=== PATIENT | female | born 1975 | race Caucasian/White ===

== ENCOUNTER 2025-08-25 09:47 | Outpatient (AMB) | payer OTHER, SELFPAY ==
--- OUTSIDE RECORDS SUMMARY | 2020-05-04 09:05 | XMS_ITS | Encounter Summary ---
Author Organization [facility] Address [address] [address] Phone Care Team Providers Care Media Production Support Manager Name Role Phone Gladis Rojas MD Unavailable [phone] Karen Clark MD Unavailable [phone] Juwan Ledezma MD Unavailable [phone] Karen Clark MD Primary Care Provider Encounter Details Date Type Department Care Team (Late st Contact Info) Description 05/04/2020 9:05 AM EDT Hospital Encounter [facility] [address] [place] [id number] Sarah Dunn CNP [address] [place] [id number] [email or web address] Social History Tobacco Use Types Packs/Day Years Used Date Smoking Tobacco: Never Smokeless Tobacco: Never Alcohol Use Standard Drinks/Week Comments Yes 1 (1 standard drink = 0.6 oz pur e alcohol) 1 per month Education Answer Date Recorded Are you interested in more education? Not on dylon e 03/16/2023 Are you concerned about learning? Not on file 03/16/2023 No 03/16/2023 No 03/16/2023 Digital Access Answer Date Recorded No 04/11/2023 No 04/11/2023 Reliable internet access at home? Not on file 04/11/2023 Device with a working camera? Not on file Comments No Sex and Gender Information Value Date Recorded Sex Assigned at Not on file Legal Sex Female 9:27 PM EDT Gender Identity Not on file Sexual Orientation Not on file documented as of this encounter Functional Status * Calculated C-SSRS Risk Score (Lifetime/Recent) Answer Date of Assessment Author No Risk Indicated 08/27/2022 10:37 PM EDT Dawit Brand, CEE * [place] Suicide Severity Rating Scale (Screener/Recent Self-Report) Question Answer Date of Assessment Author 1. Wish to be (Past 1 Month) No 022 10:37 PM EDT Dawit Brand RN 2. Non-Specific Active Suici yann Thoughts (Past 1 Month) No 08/27/2022 10:37 PM EDT Tony Brand ea, RN 6. Suicidal Behavior (Lifetime) No 10:37 PM EDT Dawit Brand RN documented as of this encounter Plan of Treatment Not on file documented as of this encounter Procedures Procedure Name Priority Date/Time Associated Diagnosis Comments XR THORACIC SPINE 3 VIEW Urgent/patient waiting 05/04/2020 9:19 AM EDT Acute midline thoracic back pain Traumatic ecchymosis of lower back, initial encounter documented in this encounter Results * XR THORACIC SPINE 3 VIEW (05/04/2020 9:19 AM EDT) Anatomical Region Laterality Modality T-spine Radiographic Lauren ging 05/04/2020 9:21 AM EDT Impressions 05/04/2020 9:23 AM EDT No acute bony abnormality detected. POS - [id number] Narrative 05/04/2020 9:23 AM EDT COMPARISON: 03/09/2019 FINDINGS: AP, lateral, and swimmer's views were obtained. No vertebral body fracture or subluxation apparent although the T1 body is not well-visualized on the lateral views. A minimal chronic left convex upper thoracic scoliotic curvature is present. Visualized paraspinal soft tissues are within normal limits. Procedure Note Duong Zamudio MD - 05/04/2020 COMPARISON: 03/09/2019 FINDINGS: AP, lateral, and swimmer's views were obtained. No vertebral body fractureor subluxation apparent although the T1 body is not well-visualized on thelateral views. A minimal chronic left convex upper thoracic scolioticcurvature is present. Visualized paraspinal soft tissues are within normallimits. IMPRESSION: No acute bony abnormality detected. POS - [id number] Sarah Wicho Shaun CONCRETE PIPE PLANT SUPERVISOR IMG XR SPINE Final Resul t documented in this encounter Visit Diagnoses Not on filedocumented in this encounter Additional Health Concerns Infection Onset Date Last Indicated Resolved Time CoV-Risk 05/05/2024 05/05/2024 05/16/2024 1:22 AM EDT documented as of this encounter Care Teams Media Production Support Manager Relationship Specialty Start Date End Date Karen Clark MD [address] [place] [address] [email or web address] PCP - General Internal Medicine 10/24/17 Gladis Rojas MD [address] [place] [address] 3 [place] [address] Historical LMR Provider 09/03/17 2 Karen Clark MD [address] [place] [address] [email or web address] Historical LMR Provider 09/03/17 Juwan Ledezma MD [address] [place] [address] [address] [place] [address] Historical LMR Provider 09/03/17 documented as of this encounter Additional Source Comments The information contained in this document represents components of the legal health record. It is not the complete legal health record.[facility]
--- OUTSIDE RECORDS SUMMARY | 2022-09-24 11:38 | XMS_ITS | Encounter Summary ---
Author Organization [facility] Address [address] [address] Phone Care Team Providers Care Stripper Cutter Machine Name Role Phone Karen Clark MD Unavailable Juwan Ledezma MD Unavailable [phone] Karen Clark MD Primary Care Provider [phone] Encounter Details Date Type Department Care Team (Late st Contact Info) Description 09/24/2022 10:38 AM EST Hospital Encounter [facility] [address] [place] [phone] Sarah Dunn CNP [address] [place] [address] [email or web address] Social History Tobacco Use Types Packs/Day Years [...] on file documented as of this encounter Plan of Treatment Not on file documented as of this encounter Procedures Procedure Name Priority Date/Time Associated Diagnosis Comments XR KNEE 4 OR MORE VIEWS (RIGHT) Urgent/patient waiting 09/24/2022 10:49 AM EST Chronic pain of right knee documented in this encounter Results * XR KNEE 4 OR MORE VIEWS (RIGHT) (09/24/2022 10:49 AM EST) Anatomical Region Laterality Modality Knee Right Computed Radiogr aphy 09/24/2022 10:5 8 AM EST Impressions 09/24/2022 11:13 AM EST 1.No fracture or dislocation. 2.Moderate suprapatellar joint effusion. ATTESTATION: Rob Amin as teaching physician, have reviewed the images for this case and if necessary edited the report originally created by Vern Siu. Narrative 09/24/2022 11:13 AM EST XR KNEE 4 OR MORE VIEWS (RIGHT) COMPARISON: None. FINDINGS: Right Knee: No fracture. Normal alignment. Small patellar and tibial spine osteophytes. Moderate suprapatellar joint effusion. Procedure Note Rob Ortega MD, PhD - 09/24/2022 XR KNEE 4 OR MORE VIEWS (RIGHT) COMPARISON: None. FINDINGS: Right Knee: No fracture. Normal alignment. Small patellar and tibial spineosteophytes. Moderate suprapatellar joint effusion. IMPRESSION: 1.No fracture or dislocation. 2.Moderate suprapatellar joint effusion. ATTESTATION: Rob Amin as teaching physician, have reviewed theimages for this case and if necessary edited the report originally createdby Vern Siu. Sarah Dunn INSTRUCTIONAL PARAPROFESSIONAL IMG XR LOWER EXTREMITY Mia l Result documented in this encounter Visit Diagnoses Not on filedocumented in this encounter Additional Health Concerns Infection Onset Date Last Indicated Resolved Time CoV-Risk 05/05/2024 05/05/2024 05/16/2024 1:22 AM EDT documented as of this encounter Care Teams Stripper Cutter Machine Relationship Specialty Start Date End Date Karen Clark MD [address] [place] [address] [email or web address] PCP - General Internal Medicine 10/24/17 Karen Clark MD [address] [place] [email or web address] Historical LMR Provider 09/03/17 Juwan Ledezma MD [address] [place] [address] [email or web address] Historical LMR Provider 09/03/17 documented as of this encounter Additional Source Comments The information contained in this document represents components of the legal health record. It is not the complete legal health record.[facility]
--- NOTE | 2025-08-25 09:55 | MHC.PC.OV ---
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 Note: New patient visit Allergies No Known Allergies Allergy (Verified 08/25/25 09:59) Tobacco use date assessed: 08/25/25 Dental Screening Dental Screen Date: 08/25/25 Did you have a dental visit in the last 12 months?: Yes Did you have a dental problem in the last 6 months where you did not have access to dental care?: No Was dental information given to patient?: Patient has dentist HPI HPI Comments History of Present Illness Details 50 year old female with a past medical history of knee pain, CTS, uterine polyps, presenting to [facility] and for physical exam MSK-CTS surgery 2008, 2012. b/l ACL repair. Six months ago had cortisone shot in the left knee. Uterine [id number] She has noticed memory issues over the past 4 hours, more so over the past 6-12 months. She is under a lot of stress. Has difficulty with word recall. Sometimes forgets what she is doing. No family history of dementia. She has left breast pain for the past year. Tells me she has had diagnostic left mammo before that did not visualize anything. Randomly occur pain can be sharp and catch her. She cannot feel any discrete masses. Mammo 04/2025 Colononoscopy 08/2022-10 years. Tdap up todate Warehouse Lead: Juwan Núñez UTD: cee [employer]RI[employer] CONSTITUTIONAL: Denies weight loss, fever and chills. HEENT: Denies changes in vision and hearing. RESPIRATORY: Denies SOB and cough. CV: Denies palpitations and CP GI: Denies abdominal pain, nausea, vomiting and diarrhea. : Denies dysuria and urinary frequency. MSK: Denies new myalgia and joint pain. SKIN: Denies rash and pruritus. NEUROLOGICAL: Denies headache PSYCHIATRIC: Denies recent changes in mood. PHYSICAL EXAM: GENERAL: Alert and oriented x 3. NAD EYES: EOMI. Anicteric. HENT: Moist mucous membranes. No scleral icterus. No cervical lymphadenopathy. LUNGS: Clear to auscultation bilaterally. CARDIOVASCULAR: Regular rate and rhythm. No murmur. No JVD. ABDOMEN: Soft, non-tender +bs EXTREMITIES: No edema. Non-tender. SKIN: No rashes or lesions. Warm. NEUROLOGIC: No focal neurological deficits. CN II-XII grossly intact PSYCHIATRIC: Cooperative. Appropriate mood and affect [facility] Surgical History H/O tubal ligation History of carpal tunnel surgery Status post hysteroscopic polypectomy Family History Mother Thyroid disorder Father Cardiovascular disease Paternal Grandmother Alcoholism Maternal Grandfather Alcoholism Other FH: mental illness Substance abuse Social History (Reviewed 08/25/25 @ 11: by Pam Berger MD) Housing: House Alcohol intake: current Patient Tobacco Use Status: Never used Tobacco e-Cigarette/Vaping Use: Never Used Second Hand Smoke Exposure: No Substance Use Type: Former Substance User and Marijuana service: No Current occupational status: employed 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 1. Little interest or pleasure in doing things: not at all 2. Feeling down, depressed, or hopeless: not at all 3. Trouble falling or staying asleep, or sleeping too much: not at all 4. Feeling tired or having little energy: not at all 5. Poor appetite or overeating: not at all 6. Feeling bad about yourself - or that you are a failure or have let yourself or your family down: not at all 7. Trouble concentrating on things, such as reading the newspaper or watching television: not at all 8. Moving or speaking so slowly that other people could have noticed. Or the opposite - being so fidgety or restless that you have been moving around a lot more than usual: not at all 9. Thoughts that you would be better off or of hurting yourself in some way: not at all Total score: 0 Depression Screening Interpretation: Negative Depression Screening Done: Yes 74765 - PHQ-9 Billing: Yes Source: Developed by Drs. Krish Holloway, Bharti Jhaveri, Frederick Norton and colleagues, with an educational george from [employer]. Thrive Questionnaire Date Thrive assessed: 08/19/25 I am a: Patient What is your living situation today?: I have a steady place to live Within the past 12 months, did the food you bought not last and you didn't have the money to get more?: Never true Within the past 12 months, did you worry whether your food would run out before you got money to buy more?: Never true Do you have trouble paying for medicines?: No Do you have trouble getting transportation to medical appointments?: No Do you have trouble paying your heating and electricity bill?: No Do you have trouble taking care of your child, family member or friend?: No Do you have trouble with day-to-day activities such as bathing, preparing meals, shopping, managing finances, etc.?: No Are you currently unemployed and looking for a job?: No Are you interested in more education?: No Please select the resources that you would like help with: None Currently or been in a relationship where the following occur: No concerns reported THRIVE Score: 0 AUDIT C Alcohol Use Questionnaire (AUDIT-C) 1. How often do you have a drink containing alcohol?: 2-4 times a month 2. How many drinks containing alcohol do you have on a typical day when you are drinking?: 1 or 2 3. How often do you have six or more drinks on one occasion?: Never Total Score: 2 MIKE-7 AMB Questionnaire MIKE-7 Date MIKE - 7 assessed: 08/25/25 Feeling nervous, anxious, or on edge: 0 = Not at all Not being able to stop or control worryin = Not at all Worrying too much about different things: 0 = Not at all Trouble relaxin = Not at all Being so restless that it is hard to sit still: 0 = Not at all Becoming easily annoyed or irritable: 0 = Not at all Feeling afraid as if something awful might happen: 0 = Not at all Total MIKE-7 score (0-4 normal; 5-9 mild; 10-14 moderate; 15-21 severe): 0 Source: Developed by Bharti Rueda Kurt Kroenke and colleagues, with an educational george from [employer]. MIKE-7 Assessment Billing MIKE-7 Assessment Tool: MIKE-7 Assessment 61946 Physical exam (Primary Care) Vital Signs: Last Vital Signs Temp 97.9 F 08/25/25 10:00 Pulse 64 08/25/25 10:00 Resp 14 08/25/25 10:00 BP 108/68 08/25/25 10:00 Pulse Ox 99 08/25/25 10:00 Oxygen Delivery Method Room Air 08/25/25 10:00 BMI result Body Mass Index 35.4 Tobacco/Smoking Status: Tobacco use Status Tobacco use date assessed 08/25/25 08/25/25 10:04 Patient Tobacco Use Status Never used Tobacco 08/25/25 10:13 e-Cigarette/Vaping Use Never Used 08/25/25 10:13 PHQ-9: PHQ-9 Score PHQ-9: Total score 0 08/25/25 10:26 Depression Screening Interpretation: Negative Thrive Assessment: Date of Thrive Assessment Date Thrive assessed 08/19/25 08/25/25 09:57 Currently or been in a relationship where the following occur: No concerns reported Office Procedures Flu Questionnaire Does the patient have a severe egg allergy?: No Does the patient have severe life threatening allergies?: No Does the patient have a fever or illness today?: No Has the patient ever had Guillain-[place] Syndrome?: No Has the patient ever had any past reaction to a flu shot?: No Immunizations Fluarix [id number] (PF) 45 mcg (15 mcg x 3)/0.5 mL IM syringe Performing Provider: Pam Berger MD Performing Location: [facility] Administered by: Akua Mendez CMA on 08/25/25 10:26 Dose Route Admin Location Dispensed Lot Number Expiration Date NDC Plow Mechanic 0.5 mL IM Left Deltoid 0.5 mL [id number] 05/18/26 70497-654-50 GLAXAimetisINE VIS Given Date VIS Provided VIS Publication Date 08/25/25 Single Vaccine 24 Eligibility Eligibility Date Funding Source Not [facility] Eligible 08/25/25 Private Coding Level of Care Code New Pt Prev Care 40-64y(30522) Diagnoses Physical exam Z00.00 Polyarthralgia M25.50 Memory loss R41.3 Additional Codes MIKE-7 Assessment Billing - MIKE-7 Assessment Tool: MIKE-7 Assessment 23184 ([id number]) PHQ-9 - 97371 - PHQ-9 Billing: Yes ([id number]) Assessment & Plan Assessment & Plan (1) Physical exam: Code(s): Z00.00 - Encounter for general adult medical examination without abnormal findings (2) Polyarthralgia: Code(s): M25.50 - Pain in unspecified joint Category: Medical (3) Memory loss: Code(s): R41.3 - Other amnesia Category: Medical Plan 50 year old to establish care/physical exam Past medical, surgical, social reviewed Preventive measures for age discussed Labs, flu shot Memory loss-labs ordered. Declines referral at present Breast pain-declines breast surgery referral Orders: Orders Complete Blood Count Auto Diff Today M25.50 - Pain in unspecified joint, R41.3 - Other amnesia, Z13.0 - Encounter for screening for diseases of the blood and blood-forming organs and certain disorders involving the immune mechanism, Z13.220 - Encounter for screening for lipoid disorders, Z13.228 - Encounter for screening for other metabolic disorders Lipid Panel Today M25.50 - Pain in unspecified joint, R41.3 - Other amnesia, Z13.0 - Encounter for screening for diseases of the blood and blood-forming organs and certain disorders involving the immune mechanism, Z13.220 - Encounter for screening for lipoid disorders, Z13.228 - Encounter for screening for other metabolic disorders TSH reflex Free T4 Today M25.50 - Pain in unspecified joint, R41.3 - Other amnesia, Z13.0 - Encounter for screening for diseases of the blood and blood-forming organs and certain disorders involving the immune mechanism, Z13.220 - Encounter for screening for lipoid disorders, Z13.228 - Encounter for screening for other metabolic disorders Vitamin D 25-OH (D2 and D3) Today M25.50 - Pain in unspecified joint, R41.3 - Other amnesia, Z13.0 - Encounter for screening for diseases of the blood and blood-forming organs and certain disorders involving the immune mechanism, Z13.220 - Encounter for screening for lipoid disorders, Z13.228 - Encounter for screening for other metabolic disorders Comprehensive Met. Panel Today M25.50 - Pain in unspecified joint, R41.3 - Other amnesia, Z13.0 - Encounter for screening for diseases of the blood and blood-forming organs and certain disorders involving the immune mechanism, Z13.220 - Encounter for screening for lipoid disorders, Z13.228 - Encounter for screening for other metabolic disorders Vitamin B12 and Folate Today M25.50 - Pain in unspecified joint, R41.3 - Other amnesia, Z13.0 - Encounter for screening for diseases of the blood and blood-forming organs and certain disorders involving the immune mechanism, Z13.220 - Encounter for screening for lipoid disorders, Z13.228 - Encounter for screening for other metabolic disorders Tick-borne Disease Molecular Today M25.50 - Pain in unspecified joint, R41.3 - Other amnesia Lyme IgG/IgM w/reflex to WB Today M25.50 - Pain in unspecified joint, R41.3 - Other amnesia Erythrocyte Sedimentation Rate Today M25.50 - Pain in unspecified joint Influenza [id number] Immunization Today Z23 - Encounter for immunization
[2025-08-25 10:00] VITALS: BP 108/68; PULSE 64; RESP 14; TEMP 36.6; O2SAT 99; BMI 35.4
--- OUTSIDE RECORDS SUMMARY | 2025-08-25 11:14 | XMS_ITS | Encounter Summary ---
Author Organization [facility] Address [address] [address] Phone Care Team Providers Care Ham Boner Name Role Phone Karen Clark MD Unavailable Juwan Ledezma MD Unavailable [phone] Karen Clark MD Primary Care Provider [phone] Encounter Details Date Type Department Care Team (Late st Contact Info) Description 04/10/2023 Transcribe Orders Virtual Department [address] [place] [address] Karen Clark MD [address] [place] [address] [phone] [email or web address] Social History Tobacco Use Types Packs/Day Years Used Date Smoking Tobacco: Never Smokeless Tobacco: Never Alcohol Use Standard Drinks/Week Comments Yes 0 (1 standard drink = 0.6 oz pur [...] on file documented as of this encounter Visit Diagnoses Not on filedocumented in this encounter Additional Health Concerns Infection Onset Date Last Indicated Resolved Time CoV-Risk 05/05/2024 05/05/2024 05/16/2024 1:22 AM EDT documented as of this encounter Care Teams Ham Boner Relationship Specialty Start Date End Date Karen Clark MD [address] [place] [address] [email or web address] PCP - General Internal Medicine 10/24/17 Karen Clark MD [address] [place] [address] Historical LMR Provider 09/03/17 Juwan Ledezma MD [address] [place] [address], [address] [address] Historical LMR Provider 09/03/17 documented as of this encounter Additional Source Comments The information contained in this document represents components of the legal health record. It is not the complete legal health record.[facility]
--- OUTSIDE RECORDS SUMMARY | 2025-08-25 11:15 | XMS_ITS | Encounter Summary ---
Author Organization [facility] Address [address] [address] Phone Care Team Providers Care Cafeteria Attendant Name Role Phone Karne Clark MD Unavailable [phone] Juwan Ledezma MD Unavailable [phone] Karen Clark MD Primary Care Provider [phone] Encounter Details Date Type Department Care Team (Late st Contact Info) Description 09/13/2022 Procedure Pass [facility]oscopy Admitting Dept Virtual Department [address] [place] [address] Social History Tobacco Use Types Packs/Day Years Used Date Smoking Tobacco: Never Smokeless Tobacco: Never Alcohol Use Standard Drinks/Week Comments Yes 0 (1 standard drink = 0.6 oz pur e alcohol) 1 per month Comments No Sex and Gender Information Value [...] documented as of this encounter Care Teams Cafeteria Attendant Relationship Specialty Start Date End Date Karen Clark MD [address] [place] [address] [email or web address] PCP - General Internal Medicine 10/24/17 Karen Clark MD [address] [place] [address] [email or web address] Historical LMR Provider 09/03/17 Juwan Ledezma MD [address] [place] [address], [address] [address] [email or web address] Historical LMR Provider 09/03/17 documented as of this encounter Additional Source Comments The information contained in this document represents components of the legal health record. It is not the complete legal health record.[facility]
--- OUTSIDE RECORDS SUMMARY | 2025-08-25 11:15 | XMS_ITS | Encounter Summary ---
Author Organization [facility] Address [address] [address] Phone Care Team Providers Care Health Unit Supervisor Name Role Phone Karen Clark MD Unavailable [phone] Juwan Ledezma MD Unavailable [phone] Karen Clark MD Primary Care Provider [phone] Encounter Details Date Type Department Care Team (Late st Contact Info) Description 03/12/2024 Procedure Pass [facility] [address] [place] [address] Social History Tobacco Use Types Packs/Day Years [...] documented as of this encounter Care Teams Health Unit Supervisor Relationship Specialty Start Date End Date Karen Clark MD [address] [place] [address] [email or web address] PCP - General Internal Medicine 10/24/17 Karen Clark MD [address] [place] [address] Historical LMR Provider 09/03/17 Juwan Ledezma MD [address] [place] [address], [address] [address] [email or web address] Historical LMR Provider 09/03/17 documented as of this encounter Additional Source Comments The information contained in this document represents components of the legal health record. It is not the complete legal health record.[facility]
--- OUTSIDE RECORDS SUMMARY | 2025-08-25 11:15 | XMS_ITS | Clinical Summary ---
Author Organization [facility] Address [address] [address] Phone Care Team Providers Care Dock Grader Name Role Phone Karen Clark MD Unavailable Juwan Ledezma MD Unavailable [phone] Karen Clark MD Primary Care Provider [phone] Allergies Active Allergy Reactions Criticality Noted Date Comments Oxycodone-Acetaminophen Nausea and/or Vomiting 05/16/2024 Medications No known medications Active Problems No known active problems Immunizations Immunization Administration Dates Next Due COVID-19 (Pre-09/10) Pfizer Vaccine, mRNA, PF ,12/30/2020 Influenza Quadrivalent MDCK Preservative Free IM 11/01/2021,09/05/2018 Influenza Quadrivalent Preservative Free IM 03/2020,08/26/2019 Family History Medical History Relation Comments CV disease Father 2 Hypertension Father 2 Hypertension Mother 2 CV disease Paternal Grandfather 2 Relation Status Comments Father 1 Alive Father 2 Mother 1 Alive Mother 2 Paternal Grandfather 1 Paternal Grandfather 2 Social History Tobacco Use Types Packs/Day Years Used Date Smoking Tobacco: Never Smokeless Tobacco: Never Tobacco Cessation:Counseling Given: Not Answered Alcohol Use Standard Drinks/Week Comments Yes 1 [...] on file Sexual Orientation Not on file Last Filed Vital Signs Vital Sign Reading Time Taken Comments Blood Pressure 116/74 02/27/2025 4:08 PM EDT Pulse 65 12/29/2022 10:30 AM EST Temperature 36.6 C (97.8 F) 12/29/2022 10:30 AM EST Respiratory Rate 16 12/29/2022 10:30 AM EST Oxygen Saturation 98% 12/29/2022 10:30 AM EST Inhaled Oxygen Concentration - - Weight 87.7 kg (193 lb 6.4 oz) 05/16/2024 3:46 P M EDT Height 157.5 cm (5' 2 ) 05/16/2024 3:46 PM EDT Body Mass Index 35.37 05/16/2024 3:46 PM EDT Plan of Treatment Health Maintenance Due Date Last Done Comments Adult Td,Tdap Booster 1975 DEPRESSION SCREENING 1989 HEPATITIS C SCREENING 1995 HIV ONE-TIME SCREENING (18-65 YEARS) 1995 COLOGUARD 2022 FIT TEST 2022 FOBT 2022 SIGMOIDOSCOPY 2022 VIRTUAL COLONOSCOPY 2022 INFLUENZA VACCINE (#1) 2025 , 10/23/2020, 08/26/2019, Additional history exists COVID-19 VACCINE ( season) 2025 07/20/2021, 01/22/2021, 12/30/2020 SCREENING FOR DIABETES 03/12/2027 03/12/2024 MAMMOGRAM 04/29/2027 04/29/2025, 07/2 02/2024, 06/06/2023, Additional history exists LIPID PANEL 03/12/2029 03/12/2024, 10/19, 12/21/2021, Additional history exists PAP SMEAR 05/16/2029 05/16/2024, 10/0 04/2021, 07/17/2018, Additional history exists COLONOSCOPY 09/13/2032 09/13/2022 COLORECTAL CANCER SCREENING 09/13/2032 SMOKING STATUS SCREENING (Once After 26 Yrs) Completed 02/27/2025 HEPATITIS A VACCINES Aged Out No long er eligible based on patient's age to complete this topic HIB VACCINES Aged Out No longer eligi ble based on patient's age to complete this topic MENINGOCOCCAL VACCINES (ACWY) Aged Out No longer eligible based on patient's age to complete this topic MENINGOCOCCAL VACCINES (B) Aged Out N o longer eligible based on patient's age to complete this topic PNEUMOCOCCAL VACCINES (0-49 years) Aged Out No longer eligible based on patient's age to complete this topic Medical Devices Not on file Procedures Procedure Name Priority Date/Time Associated Diagnosis Comments BI MAMMOGRAM DIAGNOSTIC WITH TOMOSYNTHESIS WITH CAD (BILATERAL) Routine 04/29/2025 2:46 PM EDT Breast pain, left PAP TEST Routine 05/16/2024 12:00 AM EDT LIPID PANEL Routine 03/12/2024 10:02 AM EDT Vitamin D deficiency Routine general medical examination at a [facility] ENDOSCOPY, COLON 09/13/2022 11:5 4 AM EDT from Last 3 Months or Most Recently Relevant to Health Maintenance Results * BI MAMMOGRAM DIAGNOSTIC WITH TOMOSYNTHESIS WITH CAD (BILATERAL) (04/29/2025 2:46 PM EDT) Anatomical Region Laterality Modality Breast Left, Breast Right, Breast Bilateral Bila teral Mammography 04/29/2025 2:54 PM EDT Impressions 04/29/2025 3:32 PM EDT No imaging findings suspicious for malignancy in either breast. Clinical follow- up recommended as well as bilateral screening mammography in one year. BI-RADS 1 NEGATIVE Results and recommendations were communicated to the patient at time of examination. Narrative 04/29/2025 3:32 PM EDT BI MAMMOGRAM DIAGNOSTIC WITH TOMOSYNTHESIS WITH CAD (BILATERAL), BI US BREAST LIMITED (LEFT) Additional patient information: Anterior-central left breast pain. This is particularly noticeable at 11:00. COMPARISON: Comparison is made with relevant prior imaging. Breast composition: The breasts are heterogeneously dense, which may obscure small masses. FINDINGS: Right Mammogram: No abnormal masses, suspicious calcifications, or other significant findings are identified mammographically in the right breast. There is no change since previous examination. Left Mammogram: No abnormal masses, suspicious calcifications, or other significant findings are identified mammographically in the left breast. There is no change since previous examination. Left Ultrasound: Targeted ultrasound was performed in the area of clinical concern as indicated by the patient. No sonographic abnormality is seen. us Juwan Ledezma MD IMG MG EXAMS Final Result * Pap Test (05/16/2024 12:00 AM EDT) 05/16/2024 05/19/2024 9:2 3 AM EDT Narrative SEE NARRATIVE - 05/26/2024 2:31 [place] [address] Wax Room Supervisor: Gwendolyn Guerra MD I&C TECH Cytology Report FINAL DIAGNOSIS A. PAP SMEAR (THIN PREP) CE: SPECIMEN ADEQUACY: Satisfactory for evaluation; transformation zone present. INTERPRETATION: NEGATIVE FOR INTRAEPITHELIAL LESION OR MALIGNANCY. Endometrial cells are present in a woman 45 years of age or older. Endometrial cells after age 45, particularly out of phase or after menopause, may be associated with benign endometrium, hormonal alterations, and, less commonly, endometrial/uterine abnormalities. Clinical correlation is recommended. This specimen was analyzed by the automated ThinPrep Imaging System (Depop.) and the selected glass were reviewed by a russet repairer. Electronically Signed Out By: JULIANE Chávez MD([facility]) By his/her signature above, the pathologist listed as making the Final Diagnosis certifies that he/she has personally reviewed this case and confirmed or corrected the diagnosis. The Pap test is a screening test primarily for squamous cancers and precursors and has associated false-negative and false-positive results. New technologies such as liquid-based preparations may decrease but will not eliminate all false-negative results. Regular sampling and follow-up of unexplained clinical signs and symptoms are recommended to minimize false negative results. PROCEDURES/ADDENDA HPV Testing (Requested) Ordered Date: 05/19/2024 A. PAP SMEAR (THIN PREP) CE: Human Papilloma Virus Test NEGATIVE for high-risk Human Papilloma Virus types 16, 18, 45 and the Other high risk probe set (Includes 31, 33, 35, 39, 51, 52, 56, 58, 59, 66, 68) Note: Testing performed by [employer] HR-HPV analysis. Clinical correlation is advised. This HPV test was performed at [facility], [address] [place] [address]. This test has been FDA approved for both SurePath and ThinPrep cervical cytology specimens. The accuracy and precision of this test for all other specimen sources has been verified in the Cytopathology Laboratory of the [facility] and has not been cleared or approved by the U.S. Food and Drug Administration. Clinical correlation is advised. CLINICAL HISTORY Date of Last Menstrual Period: 05-10-24 Other Clinical Conditions: Screening Pap SPECIMEN SOURCE A: PAP SMEAR (THIN PREP) CE Patient Name: YENI CHILDRESS : 1975 (Age: 49) Sex: F Institution: [facility] Location: [facility] Date of Collection: 05/16/2024 Date of Reported: 05/26/2024 14:31 Results to: Juwan Ledezma MD, BS us Juwan Ledezma MD CYTOLOGY ORDERABLES Final Res ult SEE NARRATIVE * (ABNORMAL) Lipid panel (03/12/2024 10:02 AM EDT) HDL 68 mg/dL [facility] Comment: Interpretation <40 mg/dL: Low HDL cholesterol (major risk factor for CHD) Greater than or equal to 60 mg/dL: High HDL cholesterol ( negative risk factor for CHD) HDL - cholesterol is affected by a number of factors, e.g. smoking, excerise, hormones, sex and age. CHOLESTEROL 195 0 - 240 mg/dL [facility] TRIGLYCERIDES 86 30 - 160 mg/dL [facility] LDL 110 50 - 129 mg/dL [facility] Comment: LDL levels in terms of risk for coronary heart disease: <100 mg/dL: Optimal 100-129 mg/dL: Near or above optimal 130-159 mg/dL: Borderline high 160-189 mg/dL: High >190 mg/dL: Very High CARDIAC RISK RATIO 2.9(L) 3.3 - 4.4 C [facility] Blood 03/12/2024 10:0 2 AM EDT 03/12/2024 10:08 AM EDT us Karen Clark MD LAB BLOOD ORDERABLES Final Result Performing Organization Address City/State/[facility] Co de Phone Number [facility] [address] [place] [address] * ENDOSCOPY, COLON (09/13/2022 11:54 AM EDT) Narrative Transcriptions Salo Pantoja MD - 09/13/2022 11:54 AM EDT Patient Name: Yeni Childress Attending MD:: SALO PANTOJA MD Procedure Date: 09/13/2022 11:54AM Date of : 1975 Age: 47 Admit Type: Outpatient Gender: Female Room: [place] [address] Referring MD: KAREN CLARK MD Exam Type: Colonoscopy Indications: Screening for colorectal malignant neoplasm, Thisis the patient's first colonoscopy Medications: Monitored Anesthesia Care Procedure: Informed consent was obtained from the patientafter discussion of the indications, limitations, alternatives, benefits, and risks of the procedure. Risks specifically discussed include but are not limited to medication reactions, missed lesions, bleeding, perforation, or the need for emergent surgery. Throughout the procedure, the patient's blood pressure, pulse, end-tidal CO2, and oxygensaturations were monitored continuously. The Olympus adult variable colonoscope CF-[id number] #4 was introduced through the anus and advanced to the terminal ileum, with identification of theappendiceal orifice and IC valve. The colonoscopy was performed without difficulty. The patient tolerated the procedure well. The quality of the bowelpreparation was excellent. The terminal ileum, ileocecal valve, appendiceal orifice, and rectum werephotographed. Complications: No immediate complications. Estimated blood loss:None. Findings: The terminal ileum appeared normal. Examination of the right colon was repeated in retroflexion and again in NBI. Retroflexion wasalso performed in the rectum. The entire examined colon appeared normal. Impression: - The examined portion of the ileum was normal. - The entire examined colon is normal. - No specimens collected. Recommendation: - Patient has a contact number available for emergencies. The signs and symptoms of potential delayed complications were discussed with thepatient. Return to normal activities tomorrow. Written discharge instructions were provided to thepatient. - Repeat colonoscopy in 10 years for screening purposes. Salo Pantoja SALO PANTOJA MD 09/13/2022 12:26:03 PM This report has been signed electronically. Number of Addenda: 0 Note Initiated On: 09/13/2022 11:54 AM Procedure Code(s): --- Professional --- 81608, Colonoscopy, flexible; diagnostic, including collection of specimen(s) by brushing or washing, when performed (separateprocedure) --- Technical --- 19626, Colonoscopy, flexible; diagnostic, including collection of specimen(s) by brushing or washing, when performed (separateprocedure) CPT copyright 2020 [employer]. All rights reserved. The codes documented in this report are preliminary and upon prosecuting attorney reviewmay be revised to meet current compliance requirements. Procedure Date: 09/13/2022 11:54:[address] [place] [address] Karen Clark MD GI PROCEDURE ORDERABLES Fin al Result from Last 3 Months or Most Recently Relevant to Health Maintenance Insurance [address] [place], [place] [address]O [facility] Member Subscriber Plan / Payer (Ef fective 2017-Present) Name:Yeni Childress Relation to Subscriber:Spouse Name:SABIHAJASON Date of :1975 (Home) Address: [address] [place] [address] Payer ID:Not on file Type:[facility] Address: [place] [id number] Advance Directives For more information, please contact: [phone] (9AM - 5PM [facility], Sunday-Sunday) Documents on File Type Date Recorded 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 Operator Expl anation Healthcare Proxy 09/05/2019 11:09 AM * Full Code (Presumed) (Latest Code Status on File) Date Activated Date Inactivated Comments 09/04/2019 11:42 AM 09/04/2019 4:21 PM Care Teams Dock Grader Relationship Specialty Start Date End Date Karen Clark MD [address] [place] [address] [email or web address] PCP - General Internal Medicine 10/24/17 Karen Clark MD [address] [place] [address] [email or web address] Historical LMR Provider 09/03/17 Juwan Ledezma MD [address] [place] [address] [email or web address] Historical LMR Provider 09/03/17 Additional Source Comments The information contained in this document represents components of the legal health record. It is not the complete legal health record.[facility]
--- OUTSIDE RECORDS SUMMARY | 2025-08-25 11:15 | XMS_ITS | Encounter Summary ---
Author Organization [facility] Address [address] [address] Phone Care Team Providers Care Electronics Recycler Name Role Phone Karen Clark MD Unavailable Juwan Ledezma MD Unavailable [phone] Karen Clark MD Primary Care Provider [phone] Encounter Details Date Type Department Care Team (Late st Contact Info) Description 05/04/2023 Transcribe Orders Virtual Department [address] [place] [address] Karen Clark MD [address] [place] [email or web address] Abnormal mammogram of left breast (Primary Dx) Social History Tobacco Use Types Packs/Day Years [...] documented as of this encounter Visit Diagnoses Diagnosis Abnormal mammogram of left breast- Primary documented in this encounter Additional Health Concerns Infection Onset Date Last Indicated Resolved Time CoV-Risk 05/05/2024 05/05/2024 05/16/2024 1:22 AM EDT documented as of this encounter Care Teams Electronics Recycler Relationship Specialty Start Date End Date Karen Clark MD [address] [place] [address] [email or web address] PCP - General Internal Medicine 10/24/17 Karen Clark MD [address] [place] [email or web address] Historical LMR Provider 09/03/17 Juwan Ledezma MD [address] [place] [address] Historical LMR Provider 09/03/17 documented as of this encounter Additional Source Comments The information contained in this document represents components of the legal health record. It is not the complete legal health record.[facility]
--- OUTSIDE RECORDS SUMMARY | 2025-08-25 11:15 | XMS_ITS | Encounter Summary ---
Author Organization [facility] Address [address] [address] Phone Care Team Providers Care Cheese Supervisor Name Role Phone Karen Clrak MD Unavailable [phone] Juwan Ledezma MD Unavailable [phone] Karen Clark MD Primary Care Provider [phone] Encounter Details Date Type Department Care Team (Late st Contact Info) Description 04/10/2023 Procedure [facility], [facility] [address] [place] [address] Social History Tobacco Use Types Packs/Day Years [...] documented as of this encounter Care Teams Cheese Supervisor Relationship Specialty Start Date End Date Karen Clark MD [address] [place] [address] [email or web address] PCP - General Internal Medicine 10/24/17 Karen Clark MD [address] [place] [address] Historical LMR Provider 09/03/17 Juwan Ledezma MD [address] [place] [address], [address] [address] [email or web address] Historical LMR Provider 09/03/17 documented as of this encounter Additional Source Comments The information contained in this document represents components of the legal health record. It is not the complete legal health record.[facility]
--- OUTSIDE RECORDS SUMMARY | 2025-08-25 11:15 | XMS_ITS | Encounter Summary ---
Author Organization [facility] Address [address] [facility] [address] [place] [address] Phone Care Team Providers Care Aircraft Electrician Name Role Phone Karen Clark MD Unavailable [phone] Juwan Ledezma MD Unavailable [phone] Karen Clark MD Primary Care Provider [phone] Encounter Details Date Type Department Care Team (Late st Contact Info) Description 03/04/2025 Ancillary Orders [facility], [facility] [address] [place], [place] [id number] Juwan Ledezma MD [address] [facility], [address] [place] [address] [email or web address] Breast pain, left (Primary Dx) Social History Tobacco Use Types [...] on file documented as of this encounter Results * BI US BREAST LIMITED (LEFT) (04/29/2025 3:23 PM EDT) Anatomical Region Laterality Modality Breast Left, Breast Bilateral Left Ul trasound 04/29/2025 2:54 PM EDT Impressions 04/29/2025 3:32 [...] is seen. us Juwan Ledezma MD IMG US BREAST Final Result documented in this encounter Visit Diagnoses Diagnosis Breast pain, left- Primary Breast pain, left documented in this encounter Care Teams Aircraft Electrician Relationship Specialty Start Date End Date Karen Clark MD [address] [place] [address] [email or web address] PCP - General Internal Medicine 10/24/17 Karen Clark MD [address] [place] [email or web address] Historical LMR Provider 09/03/17 Juwan Ledezma MD [address] [place] [address] [email or web address] Historical LMR Provider 09/03/17 documented as of this encounter Additional Source Comments The information contained in this document represents components of the legal health record. It is not the complete legal health record.[facility]
--- OUTSIDE RECORDS SUMMARY | 2025-08-25 11:15 | XMS_ITS | Encounter Summary ---
Author Organization [facility] Address [address] [place] [address] Phone Care Team Providers Care Neurosurgery Spine Physician Name Role Phone Gladis Rojas MD Unavailable [phone] Karen Clark MD Unavailable [phone] Juwan Ledezma MD Unavailable [phone] Karen Clark MD Primary Care Provider Encounter Details Date Type Department Care Team (Late st Contact Info) Description 05/23/2018 Ancillary Orders Virtual Department [address] [place], [place] [id number] Karen Clark MD [address] [place] [email or web address] Breast screening Social History Tobacco Use Types Packs/Day Years Used Date Smoking Tobacco: Never Smokeless Tobacco: Never Alcohol Use Standard Drinks/Week Comments Yes 0 (1 standard drink = 0.6 oz pur e alcohol) Comments Unknown Sex and Gender Information Value Date Recorded Sex Assigned at Not on file Legal Sex Female 9:27 PM EDT Gender Identity Not on file Sexual Orientation Not on file documented as of this encounter Plan of Treatment Not on file documented as of this encounter Results * BI MAMMOGRAM SCREENING WITH TOMOSYNTHESIS WITH CAD (BILATERAL) (07/16/2018 1:54 PM EDT) Anatomical Region Laterality Modality Breast Left, Breast Right, Breast Bilateral Bila teral Mammography 07/16/2018 2:27 PM EDT Impressions 07/16/2018 2:29 PM EDT Stable appearance relative to prior imaging. No findings suggestive of malignancy are seen. BI-RADS CATEGORY: 1 - Negative. DENSITY: The breast tissue is heterogeneously dense, an appearance which lowers the sensitivity of mammography. POS - [id number] Narrative 07/16/2018 2:29 PM EDT Full-field digital mammography is obtained with computer-aided detection. Comparison with prior imaging from 02/20/2017 is made. There is heterogeneous fibroglandular density evident in the breasts. In addition to 2-D C view imaging, tomosynthesis images are obtained in two projections of each breast. No dominant soft tissue mass of concern, suspicious cluster of calcifications, significant interval skin changes, or architectural distortion is identified. Procedure Note Christopher Montes MD - 07/16/2018 Full-field digital mammography is obtained with computer-aided detection.Comparison with prior imaging from 02/20/2017 is made. There is heterogeneous fibroglandular density evident in the breasts. Inaddition to 2-D C view imaging, tomosynthesis images are obtained in twoprojections of each breast. No dominant soft tissue mass of concern, suspicious cluster ofcalcifications, significant interval skin changes, or architecturaldistortion is identified. IMPRESSION: Stable appearance relative to prior imaging. No findings suggestive ofmalignancy are seen. BI-RADS CATEGORY: 1 - Negative. DENSITY: The breast tissue is heterogeneously dense, an appearance whichlowers the sensitivity of mammography. POS - [id number] Karen Clark MD IMG MG EXAMS Final Resul t documented in this encounter Visit Diagnoses Diagnosis Breast screening Breast screening, unspecified Breast screening Breast screening, unspecified documented in this encounter Additional Health Concerns Infection Onset Date Last Indicated Resolved Time CoV-Risk 05/05/2024 05/05/2024 05/16/2024 1:22 AM EDT documented as of this encounter Care Teams Neurosurgery Spine Physician Relationship Specialty Start Date End Date Karen Clark MD [address] [place] [address] [email or web address] PCP - General Internal Medicine 10/24/17 Gladis Rojas MD [address] [place] [address] [address] [place] [address] Historical LMR Provider 09/03/17 2 Karen Clark MD [address] [place] [address] [email or web address] Historical LMR Provider 09/03/17 Juwan Ledezma MD [address] [place] [address] [address] [place] [address] [email or web address] Historical LMR Provider 09/03/17 documented as of this encounter Additional Source Comments The information contained in this document represents components of the legal health record. It is not the complete legal health record.[facility]
--- OUTSIDE RECORDS SUMMARY | 2025-08-25 11:15 | XMS_ITS | Encounter Summary ---
Author Organization [facility] Address [address] [place] [address] Phone Care Team Providers Care Lightout Examiner Name Role Phone Gladis Rojas MD Unavailable [phone] Karen Clark MD Unavailable [phone] Juwan Ledezma MD Unavailable [phone] Karen Clark MD Primary Care Provider [phone] Encounter Details Date Type Department Care Team (Late st Contact Info) Description 08/24/2021 Procedure Pass [address] [address] Social History Tobacco Use Types Packs/Day Years Used Date Smoking Tobacco: Never Smokeless Tobacco: Never Alcohol Use Standard Drinks/Week Comments Yes 0 (1 standard drink = 0.6 oz pur e alcohol) 1 per week Comments No Sex and Gender Information Value [...] documented as of this encounter Care Teams Lightout Examiner Relationship Specialty Start Date End Date Karen Clark MD [address] [place] [address] [phone] [email or web address] PCP - General Internal Medicine 10/24/17 Gladis Rojas MD [address] [place] [address] Historical LMR Provider 09/03/17 2 Karen Clark MD [address] [place] [address] [email or web address] Historical LMR Provider 09/03/17 Juwan Ledezma MD [address] [place] [address] [address] [place] [address] [email or web address] Historical LMR Provider 09/03/17 documented as of this encounter Additional Source Comments The information contained in this document represents components of the legal health record. It is not the complete legal health record.[facility]
--- OUTSIDE RECORDS SUMMARY | 2025-08-25 11:15 | XMS_ITS | Encounter Summary ---
Author Organization [facility] Address [address] [address] Phone Care Team Providers Care Business Intelligence Reporting Analyst Name Role Phone Karen Clark MD Unavailable [phone] Juwan Ledezma MD Unavailable [phone] Karen Clark MD Primary Care Provider [phone] Encounter Details Date Type Department Care Team (Late st Contact Info) Description 06/20/2022 Transcribe Orders Virtual Department [address] [place] [address] Karen Clark MD [address] [place] [email or web address] Mass of left axilla (Primary Dx) Social History Tobacco Use Types [...] documented as of this encounter Results * US Axilla - Not Breast Imaging (Left) (06/28/2022 2:58 PM EDT) Anatomical Region Laterality Modality Chest Ultrasound 06/29/2022 12:4 5 PM EDT Impressions 06/29/2022 12:47 PM EDT Normal appearing nonenlarged left axillary lymph nodes. Narrative 06/29/2022 12:47 PM EDT US AXILLA - NOT BREAST IMAGING (LEFT) HISTORY: 56-year-old female presents for evaluation of palpable lump present for 6 to 8 weeks, decreasing in size over the last few days. TECHNIQUE: Ultrasound of the left axilla. COMPARISON: None FINDINGS: Targeted ultrasound examination of the left axilla palpable area demonstrates two normal-appearing lymph nodes, one measuring 1.8 x 0.8 x 1.1 cm and one measuring 1.8 x 0.7 x 0.8 cm. Both of these demonstrate normal fatty usama, without significant internal vascularity. No other cystic or solid mass. Procedure Note Bartolo Santa MD - 06/29/2022 US AXILLA - NOT BREAST IMAGING (LEFT) HISTORY: 56-year-old female presents for evaluation of palpable lumppresent for 6 to 8 weeks, decreasing in size over the last few days. TECHNIQUE: Ultrasound of the left axilla. COMPARISON: None FINDINGS: Targeted ultrasound examination of the left axilla palpable areademonstrates two normal-appearing lymph nodes, one measuring 1.8 x 0.8 x1.1 cm and one measuring 1.8 x 0.7 x 0.8 cm. Both of these demonstratenormal fatty usama, without significant internal vascularity. No othercystic or solid mass. IMPRESSION: Normal appearing nonenlarged left axillary lymph nodes. us Karen Clark MD IMG US EXTREMITY Final Resu lt documented in this encounter Visit Diagnoses Diagnosis Mass of left axilla- Primary Mass of left axilla documented in this encounter Additional Health Concerns Infection Onset Date Last Indicated Resolved Time CoV-Risk 05/05/2024 05/05/2024 05/16/2024 1:22 AM EDT documented as of this encounter Care Teams Business Intelligence Reporting Analyst Relationship Specialty Start Date End Date Karen Clark MD [address] [place] [address] [email or web address] PCP - General Internal Medicine 10/24/17 Karen Clark MD [address] [place] [address] [email or web address] Historical LMR Provider 09/03/17 Juwan Ledezma MD [address] [place] [address] [email or web address] Historical LMR Provider 09/03/17 documented as of this encounter Additional Source Comments The information contained in this document represents components of the legal health record. It is not the complete legal health record.[facility]
--- OUTSIDE RECORDS SUMMARY | 2025-08-25 11:15 | XMS_ITS | Encounter Summary ---
Author Organization [facility] Address [address] [address] Phone Care Team Providers Care Tube Backer Name Role Phone Karen Clark MD Unavailable [phone] Juwan Ledezma MD Unavailable [phone] Karen Clark MD Primary Care Provider [phone] Encounter Details Date Type Department Care Team (Late st Contact Info) Description 03/12/2024 Transcribe Orders Virtual Department 30 [place] [address] Karen Clark MD [address] [place] [address] [email or web address] Breast screening (Primary Dx) Social History Tobacco Use Types [...] MAMMOGRAM SCREENING WITH TOMOSYNTHESIS WITH CAD (BILATERAL) (06/11/2024 10:19 AM EDT) Anatomical Region Laterality Modality Breast Left, Breast Right, Breast Bilateral Bila teral Mammography 06/11/2024 3:33 PM EDT Impressions 06/11/2024 3:35 PM EDT No mammographic evidence of malignancy in either breast. Annual screening mammography is recommended. BI-RADS 1 NEGATIVE The patient will be notified of the results and recommendations. Narrative 06/11/2024 3:35 PM EDT BI MAMMOGRAM SCREENING WITH TOMOSYNTHESIS WITH CAD (BILATERAL) Additional patient information: Screening. COMPARISON: Comparison is made with relevant prior imaging. Breast composition: There are scattered areas of fibroglandular density. FINDINGS: No abnormal masses, suspicious calcifications, or other significant findings are identified mammographically in either breast. There has been no significant interval change. Procedure Note Linda Yang MD - 06/11/2024 BI MAMMOGRAM SCREENING WITH TOMOSYNTHESIS WITH CAD (BILATERAL) Additional patient information: Screening. COMPARISON: Comparison is made with relevant prior imaging. Breast composition: There are scattered areas of fibroglandular density. FINDINGS: No abnormal masses, suspicious calcifications, or other significantfindings are identified mammographically in either breast. There has been no significant interval change. IMPRESSION: No mammographic evidence of malignancy in either breast. Annual screening mammography is recommended. BI-RADS 1 NEGATIVE The patient will be notified of the results and recommendations. Karen Clark MD IMG MG EXAMS Final Resul t documented in this encounter Visit Diagnoses Diagnosis Breast screening- Primary Breast screening, unspecified Breast screening Breast screening, unspecified documented in this encounter Additional Health Concerns Infection Onset Date Last Indicated Resolved Time CoV-Risk 05/05/2024 05/05/202405/16/2024 1:22 AM EDT documented as of this encounter Care Teams Tube Backer Relationship Specialty Start Date End Date Karen Clark MD [address] [place] [address] [email or web address] PCP - General Internal Medicine 10/24/17 Karen Clark MD [address] [place] [address] [email or web address] Historical LMR Provider 09/03/17 Juwan Ledezma MD [address] [place] [address] [email or web address] Historical LMR Provider 09/03/17 documented as of this encounter Additional Source Comments The information contained in this document represents components of the legal health record. It is not the complete legal health record.[facility]
--- OUTSIDE RECORDS SUMMARY | 2025-08-25 11:15 | XMS_ITS | Encounter Summary ---
Author Organization [facility] Address [address] [address] Phone Care Team Providers Care Malware Analyst Name Role Phone Karen Clark MD Unavailable Juwan Ledezma MD Unavailable [phone] Karen Clark MD Primary Care Provider [phone] Encounter Details Date Type Department Care Team (Late st Contact Info) Description 03/12/2024 Transcribe Orders [facility] [address] [id number] Karen Clark MD [address] [place] [address] [phone] [email or web address] Vitamin D deficiency (Primary Dx); Routine general medical examination at a health care facility Social History Tobacco Use Types Packs/Day Years [...] documented as of this encounter Results * Urinalysis (03/12/2024 10:02 AM EDT) COLOR Yellow Yellow [facility] CLARITY Clear [facility] GLUCOSE Negative Negative [facility] BILI Negative Negative [facility] KETONES Negative Negative [facility] SPECIFIC GRAVITY 1.025 1.005 - 1.030 [facility] BLOOD Negative Negative [facility] PH 6.0 5.0 - 8.0 [facility] Protein-UA Negative Negative [facility] NITRITE Negative Negative [facility] Leukocyte esterase, ur Negative Negative [facility] Urine (Urine) 03/12/2024 10: 02 AM EDT 03/12/2024 10:48 AM EDT Karen Clark MD URINE ORDERABLES Final Resu lt Performing Organization Address [facility]/ZIP Co de Phone Number [address] [address] * 25-OH vitamin D (03/12/2024 10:02 AM EDT) 25 [place] VIT D (TOTAL) 35 30 - 60 ng/mL [facility] Blood 03/12/2024 10:0 2 AM EDT 03/12/2024 10:08 AM EDT Karen Clark MD LAB BLOOD ORDERABLES Final Result Performing Organization Address [facility]/ZIP Co de Phone Number [address] [address] * CBC (03/12/2024 10:02 AM EDT) WBC 6.40 4.00 - 11.00 K/uL [facility] RBC 4.44 3.72 - 5.30 M/uL [facility] HGB 12.9 10.6 - 15.5 g/dL [facility] HCT 39.5 32.0 - 45.0 % [facility] PLT 239 140 - 430 K/uL [facility] MCV 89.0 78.0 - 97.0 fL [facility] MCH 29.1 25.0 - 33.0 pg [facility] MCHC 32.7 32.0 - 36.0 g/dL [facility] RDW 12.6 11.0 - 16.0 % [facility] MPV 10.7 8.4 - 12.8 [facility] Blood 03/12/2024 10:0 2 AM EDT 03/12/2024 10:08 AM EDT Karen Clark MD LAB BLOOD ORDERABLES Final Result Performing Organization Address City/State/[facility] Co de Phone Number [facility] [address] [place] [address] * (ABNORMAL) Lipid panel (03/12/2024 10:02 AM EDT) HDL 68 mg/dL [facility] Comment: Interpretation <40 mg/dL: Low HDL cholesterol (major risk factor for CHD) Greater than or equal to 60 mg/dL: High HDL cholesterol ( negative risk factor for CHD) HDL - cholesterol is affected by a number of factors, e.g. smoking, excerise, hormones, sex and age. CHOLESTEROL 195 0 - 240 mg/dL [facility] TRIGLYCERIDES 86 30 - 160 mg/dL [facility] LDL 110 50 - 129 mg/dL [facility] Comment: LDL levels in terms of risk for coronary heart disease: <100 mg/dL: Optimal 100-129 mg/dL: Near or above optimal 130-159 mg/dL: Borderline high 160-189 mg/dL: High >190 mg/dL: Very High CARDIAC RISK RATIO 2.9(L) 3.3 - 4.4 C [facility] Blood 03/12/2024 10:0 2 AM EDT 03/12/2024 10:08 AM EDT us Karen Clark MD LAB BLOOD ORDERABLES Final Result [address] [address] * Comprehensive metabolic panel (03/12/2024 10:02 AM EDT) SODIUM 139 133 - 146 mmol/L [facility] POTASSIUM 4.4 3.3 - 5.1 mmol/L [facility] CHLORIDE 104 96 - 108 mmol/L [facility] CO2 23 21 - 35 mmol/L [facility] BUN 12 6 - 19 mg/dL [facility] CREATININE 0.90 0.5 - 1.5 mg/dL [facility] GLUCOSE 91 70 - 99 mg/dL [facility] ALBUMIN 4.6 3.9 - 4.8 g/dL [facility] TOTAL PROTEIN 7.1 6.5 - 8.0 g/dL [facility] CALCIUM 9.2 8.4 - 10.3 mg/dL [facility] ALKALINE PHOSPHATASE 72 39 - 117 U/L [facility] TOTAL BILIRUBIN 0.5 0.0 - 1.2 mg/dL [facility] AST 19 0 - 37 U/L [facility] ALT 16 0 - 40 U/L [facility] GLOBULIN 2.5 1 - 4.8 g/dL [facility] EGFR 79 >59 mL/min/1.7 3m2 [facility] Comment:Estimated glomerular filtration rate calculated using the CKD-EPI refit equation. ANION GAP 16 10 - 20 mmol/L [facility] Blood 03/12/2024 10:0 2 AM EDT 03/12/2024 10:08 AM EDT us Karen Clark MD LAB BLOOD ORDERABLES Final Result [address] [address] documented in this encounter Visit Diagnoses Diagnosis Vitamin D deficiency- Primary Routine general medical examination at a health care facility documented in this encounter Additional Health Concerns Infection Onset Date Last Indicated Resolved Time CoV-Risk 05/05/2024 05/05/2024 05/16/2024 1:22 AM EDT documented as of this encounter Care Teams Malware Analyst Relationship Specialty Start Date End Date Karen lCark MD [address] [place] [address] [email or web address] PCP - General Internal Medicine 10/24/17 Karen Clark MD [address] [place] [address] [email or web address] Historical LMR Provider 09/03/17 Juwan Ledezma MD [address] [place] [address], [address] [address] [email or web address] Historical LMR Provider 09/03/17 documented as of this encounter Additional Source Comments The information contained in this document represents components of the legal health record. It is not the complete legal health record.[facility]
--- OUTSIDE RECORDS SUMMARY | 2025-08-25 11:15 | XMS_ITS | Encounter Summary ---
Author Organization [facility] Address [address] [place] [address] Phone Care Team Providers Care Rn Field Case Manager Name Role Phone Gladis Rojas MD Unavailable [phone] Karen Clark MD Unavailable [phone] Juwan Ledezma MD Unavailable [phone] Karen Clark MD Primary Care Provider Encounter Details Date Type Department Care Team (Late st Contact Info) Description 05/01/2019 Transcribe Orders Virtual Department [address] [place] [address] Karen Clark MD [address] [place] [address] [phone] [email or web address] Generalized subcutaneous nodules (Primary Dx) Social History Tobacco Use Types Packs/Day Years Used Date Smoking Tobacco: Never Smokeless Tobacco: Never Alcohol Use Standard Drinks/Week Comments Yes 0 (1 standard drink = 0.6 oz pur e alcohol) 3xs a week Comments No Sex and Gender Information Value Date Recorded Sex Assigned at Not on file Legal Sex Female 9:27 PM EDT Gender Identity Not on file Sexual Orientation Not on file documented as of this encounter Plan of Treatment Not on file documented as of this encounter Results * US UPPER EXTREMITY NON-VASCULAR LIMITED (RIGHT) (05/05/2019 3:34 PM EDT) Anatomical Region Laterality Modality Shoulder Right, Arm Right, E lbow Right, Forearm Right, Wrist Right, Hand Right Ultrasound 05/05/2019 4:13 PM EDT Impressions 05/05/2019 4:21 PM EDT 3 small round hypoechoic areas within a more vague, generalized area of increased echogenicity in the subcutaneous fat. I presume this indicates a hematoma/contusion, possibly with multifocal small seromas forming but the hypoechoic areas could also be developing fat necrosis or, less likely small abscesses. The lack of hyperemia weighs against cellulitis or abscess formation. I'm uncertain as to the best form of follow-up but if the palpable lumps enlarge, repeat ultrasound would be recommended to be sure the hypoechoic areas are not enlarging in a pattern suggestive of developing abscess. POS [id number] Narrative 05/05/2019 4:21 PM EDT HISTORY: Recent dog bite with crushtype injury and puncture wound. Chain of palpable lumps in the lower axilla/medial upper arm. No comparison In the area of the palpable lumps there is an ill-defined band of increased echogenicity in the subcutaneous fat. Within this hyperechoic tissue there are several spherical, circumscribed hypoechoic areas measuring 3 mm, 2 mm and 2 x 3 mm. No significant hyperemia. No large focal collections. No obvious echogenic foreign bodies. Procedure Note Melo Chavez MD - 05/05/2019 HISTORY: Recent dog bite with crushtype injury and puncture wound. Chainof palpable lumps in the lower axilla/medial upper arm. No comparison In the area of the palpable lumps there is an ill-defined band ofincreased echogenicity in the subcutaneous fat. Within this hyperechoictissue there are several spherical, circumscribed hypoechoic areasmeasuring 3 mm, 2 mm and 2 x 3 mm. No significant hyperemia. No large focal collections. No obvious echogenic foreign bodies. IMPRESSION: 3 small round hypoechoic areas within a more vague, generalized area ofincreased echogenicity in the subcutaneous fat. I presume this indicates ahematoma/contusion, possibly with multifocal small seromas forming but thehypoechoic areas could also be developing fat necrosis or, less likelysmall abscesses. The lack of hyperemia weighs against cellulitis or abscess formation. I'm uncertain as to the best form of follow-up but if the palpable lumpsenlarge, repeat ultrasound would be recommended to be sure the hypoechoicareas are not enlarging in a pattern suggestive of developing abscess. POS [id number] Karen Clark MD IMG US EXTREMITY Final Resu lt documented in this encounter Visit Diagnoses Diagnosis Generalized subcutaneous nodules- Primary Generalized subcutaneous nodules documented in this encounter Additional Health Concerns Infection Onset Date Last Indicated Resolved Time CoV-Risk 05/05/2024 05/05/2024 05/16/2024 1:22 AM EDT documented as of this encounter Care Teams Rn Field Case Manager Relationship Specialty Start Date End Date Karen Clark MD [address] [place] [address] [email or web address] PCP - General Internal Medicine 10/24/17 Gladis Rojas MD [address] [place] [address] 3 [place] [address] Historical LMR Provider 09/03/17 2 Karen Clark MD [address] [place] [address] [email or web address] Historical LMR Provider 09/03/17 Juwan Ledezma MD [address] [place] [address] [address] [place] [address] [email or web address] Historical LMR Provider 09/03/17 documented as of this encounter Additional Source Comments The information contained in this document represents components of the legal health record. It is not the complete legal health record.[facility]
--- OUTSIDE RECORDS SUMMARY | 2025-08-25 11:15 | XMS_ITS | Encounter Summary ---
Author Organization [facility] Address [address] [place] [address] Phone Care Team Providers Care Cellophane Casting Machine Repairer Name Role Phone Gladis Rojas MD Unavailable [phone] Karen Clark MD Unavailable [phone] Juwan Ledezma MD Unavailable [phone] Karen Clark MD Primary Care Provider [phone] Encounter Details Date Type Department Care Team (Late st Contact Info) Description 03/14/2019 Transcribe Orders Virtual Department [address] [place] [address] Karen Clark MD [address] [place] [address] [phone] [email or web address] Hepatic lesion (Primary Dx) Social History Tobacco Use Types [...] as of this encounter Results * US ABDOMEN LIMITED RIGHT UPPER QUADRANT (04/02/2019 8:37 AM EDT) Anatomical Region Laterality Modality Abdomen Ultrasound 04/02/2019 8:49 AM EDT Impressions 04/03/2019 4:20 PM EDT 3.3 cm hyperechoic lesion corresponds with the finding on CT. With the features on CT and ultrasound, this is suggestive of a hemangioma. Recommend 6 month follow-up ultrasound to ensure stability. Minimally echogenic hepatic parenchyma is commonly seen with fatty liver. POS [id number] Edited by: Carol Reyes on 04/02/2019 9:11 AM Narrative 04/03/2019 4:20 PM EDT COMPARISON: Chest CT 03/09/2019. FINDINGS: Liver: Minimally echogenic parenchyma. In the right hepatic lobe near the dome, there is 3.3 x 3.3 x 3.2 cm mildly heterogeneous hyperechoic mass without vascularity. This corresponds with the finding on CT. With the features on CT and ultrasound, this is suggestive of a hemangioma. 0.5 cm right hepatic lobe cyst near the gallbladder neck. Gallbladder/Biliary Tree: Gallbladder lumen appears clear without wall thickening or pericholecystic fluid. No intra or extrahepatic biliary ductal dilatation. The common bile duct measures 0.4 cm. Pancreas: No abnormality in the visualized pancreas. Right kidney: No hydronephrosis on limited imaging. Upper abdominal aorta/IVC: No abnormality in the visualized portions. Procedure Note Jluis Ryan MD - 04/03/2019 COMPARISON: Chest CT 03/09/2019. FINDINGS: Liver: Minimally echogenic parenchyma. In the right hepatic lobe near thedome, there is 3.3 x 3.3 x 3.2 cm mildly heterogeneous hyperechoic masswithout vascularity. This corresponds with the finding on CT. With thefeatures on CT and ultrasound, this is suggestive of a hemangioma. 0.5 cmright hepatic lobe cyst near the gallbladder neck. Gallbladder/Biliary Tree: Gallbladder lumen appears clear without wallthickening or pericholecystic fluid. No intra or extrahepatic biliaryductal dilatation. The common bile duct measures 0.4 cm. Pancreas: No abnormality in the visualized pancreas. Right kidney: No hydronephrosis on limited imaging. Upper abdominal aorta/IVC: No abnormality in the visualized portions. IMPRESSION: 3.3 cm hyperechoic lesion corresponds with the finding on CT. With thefeatures on CT and ultrasound, this is suggestive of a hemangioma.Recommend 6 month follow-up ultrasound to ensure stability. Minimally echogenic hepatic parenchyma is commonly seen with fattyliver. POS [id number] Edited by: Carol Reyes on 04/02/2019 9:11 AM us Karen Clark MD IMG US ABDOMEN Final Resul t documented in this encounter Visit Diagnoses Diagnosis Hepatic lesion- Primary Hepatic lesion documented in this encounter Additional Health Concerns Infection Onset Date Last Indicated Resolved Time CoV-Risk 05/05/2024 05/05/2024 05/16/2024 1:22 AM EDT documented as of this encounter Care Teams Cellophane Casting Machine Repairer Relationship Specialty Start Date End Date Karen Clark MD [address] [place] [address] PCP - General Internal Medicine 10/24/17 Gladis Rojas MD [address] [place] [address] Historical LMR Provider 09/03/17 2 Karen Clark MD [address] [place] [address] Historical LMR Provider 09/03/17 Juwan Ledezma MD [address] [place] [address], [address] [place] [address] Historical LMR Provider 09/03/17 documented as of this encounter Additional Source Comments The information contained in this document represents components of the legal health record. It is not the complete legal health record.[facility]
--- OUTSIDE RECORDS SUMMARY | 2025-08-25 11:15 | XMS_ITS | Encounter Summary ---
Author Organization [facility] Address [address] [address] Phone Care Team Providers Care Glassine Machine Tender Name Role Phone Karen Clark MD Unavailable [phone] Juwan Ledezma MD Unavailable [phone] Karen Clark MD Primary Care Provider [phone] Encounter Details Date Type Department Care Team (Late st Contact Info) Description 03/04/2025 Procedure Pass [facility], [facility] [address] [place] [address] Social History Tobacco Use Types Packs/Day Years [...] Diagnoses Not on filedocumented in this encounter Care Teams Glassine Machine Tender Relationship Specialty Start Date End Date Karen Clark MD [address] [place] [address] [email or web address] PCP - General Internal Medicine 10/24/17 Karen Clark MD [address] [place] [address] [email or web address] Historical LMR Provider 09/03/17 Juwan Ledezma MD [address] [place] [address], [facility] [address] [place] [address] [email or web address] Historical LMR Provider 09/03/17 documented as of this encounter Additional Source Comments The information contained in this document represents components of the legal health record. It is not the complete legal health record.[facility]
--- OUTSIDE RECORDS SUMMARY | 2025-08-25 11:15 | XMS_ITS | Encounter Summary ---
Author Organization [facility] Address [address] [address] Phone Care Team Providers Care Network Security Architect Name Role Phone Karen Clark MD Unavailable [phone] Juwan Ledezma MD Unavailable [phone] Karen Clark MD Primary Care Provider [phone] Encounter Details Date Type Department Care Team (Late st Contact Info) Description 02/27/2025 Procedure Pass [facility], [facility] [address] [place] [address] Social History Tobacco Use Types Packs/Day Years [...] on filedocumented in this encounter Care Teams Network Security Architect Relationship Specialty Start Date End Date Karen Clark MD [address] [place] [address] [email or web address] PCP - General Internal Medicine 10/24/17 Karen Clark MD [address] [place] [address] [email or web address] Historical LMR Provider 09/03/17 Juwan Ledezma MD [address] [place] [address], [facility] [address] [place] [address] [email or web address] Historical LMR Provider 09/03/17 documented as of this encounter Additional Source Comments The information contained in this document represents components of the legal health record. It is not the complete legal health record.[facility]
--- OUTSIDE RECORDS SUMMARY | 2025-08-25 11:16 | XMS_ITS | Encounter Summary ---
Author Organization [facility] Address [address] [place] [address] Phone Care Team Providers Care Cfo Controller Name Role Phone Gladis Rojas MD Unavailable [phone] Karen Clark MD Unavailable [phone] Juwan Ledezma MD Unavailable [phone] Karen Clark MD Primary Care Provider [phone] Encounter Details Date Type Department Care Team (Late st Contact Info) Description 09/04/2019 Procedure Pass [place] Admitting Dept - Virtual Department [address] [place] [address] Social History Tobacco Use Types Packs/Day Years [...] documented as of this encounter Care Teams Cfo Controller Relationship Specialty Start Date End Date Karen Clark MD [address] [place] [address] [phone] [email or web address] PCP - General Internal Medicine 10/24/17 Gladis Rojas MD [address] [place] [address] Historical LMR Provider 09/03/17 2 Karen Clark MD [address] [place] [address] [email or web address] Historical LMR Provider 09/03/17 Juwan Ledezma MD [address] [place] [address] [address] [place] [address] [email or web address] Historical LMR Provider 09/03/17 documented as of this encounter Additional Source Comments The information contained in this document represents components of the legal health record. It is not the complete legal health record.[facility]
--- OUTSIDE RECORDS SUMMARY | 2025-08-25 11:16 | XMS_ITS | Encounter Summary ---
Author Organization [facility] Address [address] [address] Phone Care Team Providers Care Applied Anthropologist Name Role Phone Gladis Rojas MD Unavailable [phone] Karen Clark MD Unavailable [phone] Juwan Ledezma MD Unavailable [phone] Karen Clark MD Primary Care Provider Encounter Details Date Type Department Care Team (Late st Contact Info) Description 10/24/2017 Transcribe Orders [facility] Laboratory [address] [id number] Karen Clark MD [address] [place] [address] [phone] [email or web address] Routine general medical examination at a health care facility (Primary Dx) Social History Tobacco Use Types Packs/Day Years Used Date Smoking Tobacco: Never Assessed Comments Unknown Sex and Gender Information Value Date Recorded Sex Assigned at Not on file Legal Sex Female 9:27 PM EDT Gender Identity Not on file Sexual Orientation Not on file documented as of this encounter Plan of Treatment Not on file documented as of this encounter Results * Urinalysis (10/24/2017 12:10 PM EST) COLOR Yellow Yellow [facility] CLARITY HAZY [facility] GLUCOSE Negative Negative [facility] BILI Negative Negative [facility] KETONES Negative Negative [facility] SPECIFIC GRAVITY 1.020 1.005 - 1.030 [facility] BLOOD Negative Negative [facility] PH 6.0 5.0 - 8.0 [facility] Protein-UA Negative Negative [facility] NITRITE Negative Negative [facility] Leukocyte esterase, ur Negative Negative [facility] Urine (Urine) 10/24/2017 12: 10 PM EST 10/24/2017 4:59 PM EST Karen Clark MD URINE ORDERABLES Final Resu lt [address] [address] * CBC (10/24/2017 12:10 PM EST) WBC 6.42 3.40 - 11.20 K/uL [facility] RBC 4.29 3.80 - 4.80 M/uL [facility] HGB 12.6 12.0 - 15.0 g/dL [facility] HCT 37.7 36.0 - 46.0 % [facility] PLT 253 130 - 400 K/uL [facility] MCV 87.9 79.0 - 98.0 fL [facility] MCH 29.4 27.0 - 34.8 pg [facility] MCHC 33.4 31.5 - 36.0 g/dL [facility] RDW 12.4 10.8 - 14.6 % [facility] MPV 11.1 9.4 - 12.4 fl [facility] NRBC 0.00 /100 WBCs [facility] ABSOLUTE NRBC 0.00 K/uL [facility] Blood 10/24/2017 12:1 0 PM EST 10/24/2017 12:14 PM EST Karen Clark MD LAB BLOOD ORDERABLES Final Result [address] [address] * (ABNORMAL) Lipid panel (10/24/2017 12:10 PM EST) HDL 65 mg/dL [facility] Comment: Interpretation: Risk Level Females Decreased >55mg/dL Average 50-55 mg/dL Increased <50 mg/dL CHOLESTEROL 160 0 - 240 mg/dL [facility] TRIGLYCERIDES 86 30 - 160 mg/dL [facility] LDL 78 50 - 129 mg/dL [facility] Comment: LDL levels in terms of risk for coronary heart disease: <100 mg/dL: Optimal 100-129 mg/dL: Near or above optimal 130-159 mg/dL: Borderline high 160-189 mg/dL: High >190 mg/dL: Very High CARDIAC RISK RATIO 2.5(L) 3.3 - 4.4 C [facility] Blood 10/24/2017 12:1 0 PM EST 10/24/2017 12:14 PM EST us Karen Clark MD LAB BLOOD ORDERABLES Final Result Performing Organization Address City/State/[facility] Co de Phone Number [address] [address] * Comprehensive metabolic panel (10/24/2017 12:10 PM EST) SODIUM 137 133 - 146 mmol/L [facility] POTASSIUM 4.6 3.3 - 5.1 mmol/L [facility] CHLORIDE 102 96 - 108 mmol/L [facility] CO2 24 21 - 35 mmol/L [facility] BUN 14 6 - 19 mg/dL [facility] CREATININE 0.80 0.5 - 1.5 mg/dL [facility] GLUCOSE 87 70 - 99 mg/dL [facility] ALBUMIN 4.2 3.9 - 4.8 g/dL [facility] TOTAL PROTEIN 7.1 6.5 - 8.0 g/dL [facility] CALCIUM 9.1 8.4 - 10.3 mg/dL [facility] ALKALINE PHOSPHATASE 59 39 - 117 U/L [facility] TOTAL BILIRUBIN 0.5 0 - 1.2 mg/dL [facility] AST 19 0 - 37 U/L [facility] ALT 12 0 - 40 U/L [facility] GLOBULIN 2.9 1 - 4.8 g/dL [facility] EGFR >60 >60 mL/min/1.7 3m2 [facility] Comment:Abnormal if <60. If patient is -Maltese, multiply the result by 1.21. ANION GAP 16 10 - 20 mmol/L [facility] Blood 10/24/2017 12:1 0 PM EST 10/24/2017 12:14 PM EST Karen Clark MD LAB BLOOD ORDERABLES Final Result [facility] [address] [place] [address] documented in this encounter Visit Diagnoses Diagnosis Routine general medical examination at a health care facility- Primary documented in this encounter Additional Health Concerns Infection Onset Date Last Indicated Resolved Time CoV-Risk 05/05/2024 05/05/2024 05/16/2024 1:22 AM EDT documented as of this encounter Care Teams Applied Anthropologist Relationship Specialty Start Date End Date Karen Clark MD [address] [place] [address] [email or web address] PCP - General Internal Medicine 10/24/17 Gladis Rojas MD [address] [place] [address] Historical LMR Provider 09/03/17 2 Karen Clark MD [address] [place] [email or web address] Historical LMR Provider 09/03/17 Juwan Ledezma MD [address] [place] [address] [address] [place] [address] [email or web address] Historical LMR Provider 09/03/17 documented as of this encounter Additional Source Comments The information contained in this document represents components of the legal health record. It is not the complete legal health record.[facility]
--- OUTSIDE RECORDS SUMMARY | 2025-08-25 11:16 | XMS_ITS | Encounter Summary ---
Author Organization [facility] Address [address] [address] Phone Care Team Providers Care Business Banking Representative Name Role Phone Gladis Rojas MD Unavailable [phone] Karen Clark MD Unavailable [phone] Juwan Ledezma MD Unavailable [phone] Karen Clark MD Primary Care Provider [phone] Encounter Details Date Type Department Care Team (Late st Contact Info) Description 10/31/2018 Transcribe Orders [facility] Laboratory [address] [phone] Karen Clark MD [address] [place] [address] [phone] [email or web address] Routine general medical examination at a health [...] documented as of this encounter Results * Rabies titer (10/31/2018 9:41 AM EST) RABIES TITER-RESPONSE 3.3 IU/mL [facility] Comment: (NOTE) ADDITIONAL INFORMATION Reportable range is 0.1 to 15.0 IU/mL Less than 0.1 IU/mL: Below detection limit In humans, a result of 0.5 IU/mL or higher is considered an acceptable response to rabies vaccination according to the World Health Organization (WHO)guidelines; see WHO and Advisory Committee on Immunization Practices documents for additional guidance. Test Performed by: [facility] [place]/[address] [address] Blood 10/31/2018 9:41 AM EST 10/31/2018 9:48 AM EST us Karen Clark MD LAB BLOOD ORDERABLES Final Result Performing Organization Address [facility] Co de Phone Number [facility] * Urinalysis (10/31/2018 9:41 AM EST) COLOR Yellow Yellow [facility] CLARITY Clear [facility] GLUCOSE Negative Negative [facility] BILI Negative Negative [facility] KETONES Negative Negative [facility] SPECIFIC GRAVITY 1.020 1.005 - 1.030 [facility] BLOOD Negative Negative [facility] PH 6.5 5.0 - 8.0 [facility] Protein-UA Negative Negative [facility] NITRITE Negative Negative [facility] Leukocyte esterase, ur Negative Negative [facility] Urine (Urine) 10/31/2018 9:4 1 AM EST 10/31/2018 10:05 AM EST us Karen Clark MD URINE ORDERABLES Final Resu lt Performing Organization Address City/[facility] Co de Phone Number [facility] [address] [place] [address] * CBC (10/31/2018 9:41 AM EST) WBC 5.21 3.40 - 11.20 K/uL [facility] RBC 4.16 3.80 - 4.80 M/uL [facility] HGB 12.3 12.0 - 15.0 g/dL [facility] HCT 37.0 36.0 - 46.0 % [facility] PLT 263 130 - 400 K/uL [facility] MCV 88.9 79.0 - 98.0 fL [facility] MCH 29.6 27.0 - 34.8 pg [facility] MCHC 33.2 31.5 - 36.0 g/dL [facility] RDW 12.4 10.8 - 14.6 % [facility] MPV 10.4 9.4 - 12.4 fl [facility] NRBC 0.00 0.00 /100 WBCs [facility] ABSOLUTE NRBC 0.00 0.00 K/uL [facility] Blood 10/31/2018 9:41 AM EST 10/31/2018 9:47 AM EST Karen Clark MD LAB BLOOD ORDERABLES Final Result Performing Organization Address City/State/[facility] Co de Phone Number [address] [address] * (ABNORMAL) Lipid panel (10/31/2018 9:41 AM EST) HDL 61 mg/dL [facility] Comment: Interpretation <40 mg/dL: Low HDL cholesterol (major risk factor for CHD) Greater than or equal to 60 mg/dL: High HDL cholesterol ( negative risk factor for CHD) HDL - cholesterol is affected by a number of factors, e.g. smoking, excerise, hormones, sex and age. CHOLESTEROL 143 0 - 240 mg/dL [facility] TRIGLYCERIDES 96 30 - 160 mg/dL [facility] LDL 63 50 - 129 mg/dL [facility] Comment: LDL levels in terms of risk for coronary heart disease: <100 mg/dL: Optimal 100-129 mg/dL: Near or above optimal 130-159 mg/dL: Borderline high 160-189 mg/dL: High >190 mg/dL: Very High CARDIAC RISK RATIO 2.3(L) 3.3 - 4.4 C [facility] Blood 10/31/2018 9:41 AM EST 10/31/2018 9:47 AM EST Karen Clark MD LAB BLOOD ORDERABLES Final Result [address] [address] * Comprehensive metabolic panel (10/31/2018 9:41 AM EST) SODIUM 141 133 - 146 mmol/L [facility] POTASSIUM 4.5 3.3 - 5.1 mmol/L [facility] CHLORIDE 108 96 - 108 mmol/L [facility] CO2 25 21 - 35 mmol/L [facility] BUN 9 6 - 19 mg/dL [facility] CREATININE 0.80 0.5 - 1.5 mg/dL [facility] GLUCOSE 96 70 - 99 mg/dL [facility] ALBUMIN 4.2 3.9 - 4.8 g/dL [facility] TOTAL PROTEIN 6.6 6.5 - 8.0 g/dL [facility] CALCIUM 9.2 8.4 - 10.3 mg/dL [facility] ALKALINE PHOSPHATASE 59 39 - 117 U/L [facility] TOTAL BILIRUBIN 0.5 0.0 - 1.2 mg/dL [facility] AST 16 0 - 37 U/L [facility] ALT 11 0 - 40 U/L [facility] GLOBULIN 2.4 1 - 4.8 g/dL [facility] EGFR 92 >59 mL/min/1.7 3m2 [facility] Comment:If patient is black, multiply result by 1.159. Estimated glomerular filtration rate calculated using the CKD-EPI equation. ANION GAP 13 10 - 20 mmol/L [facility] Blood 10/31/2018 9:41 AM EST 10/31/2018 9:47 AM EST Karen Clark MD LAB BLOOD ORDERABLES Final Result Performing Organization Address City/[facility]/ZIP Co de Phone Number [address] [address] documented in this encounter Visit Diagnoses Diagnosis Routine general medical examination at a health care facility- Primary documented in this encounter Additional Health Concerns Infection Onset Date Last Indicated Resolved Time CoV-Risk 05/05/2024 05/05/2024 05/16/2024 1:22 AM EDT documented as of this encounter Care Teams Business Banking Representative Relationship Specialty Start Date End Date Karen Clark MD [address] [place] [address] [email or web address] PCP - General Internal Medicine 10/24/17 Gladis Rojas MD [address] [place] [address] 3 [place] [address] Historical LMR Provider 09/03/17 2 Karen Clark MD [address] [place] [phone] [email or web address] Historical LMR Provider 09/03/17 Juwan Ledezma MD [address] [place] [address], [address] [place] [address] [email or web address] Historical LMR Provider 09/03/17 documented as of this encounter Additional Source Comments The information contained in this document represents components of the legal health record. It is not the complete legal health record.[facility]
--- OUTSIDE RECORDS SUMMARY | 2025-08-25 11:16 | XMS_ITS | Encounter Summary ---
Author Organization [facility] Address [address] [address] Phone Care Team Providers Care Suction Plate Carrier Cleaner Name Role Phone Gladis Rojas MD Unavailable [phone] Karen Clark MD Unavailable [phone] Juwan Ledezma MD Unavailable [phone] Karen Clark MD Primary Care Provider Encounter Details Date Type Department Care Team (Late st Contact Info) Description 10/07/2019 Transcribe Orders [facility] Laboratory [address] [place] [address] Karen Clark MD [address] [place] [address] [phone] [email or web address] Routine general medical examination at a health [...] Procedure Name Priority Date/Time Associated Diagnosis Comments URINALYSIS WITH SEDIMENT Routine 10/07/2019 9:57 AM EST Routine general medical examination at a health care facility COMPREHENSIVE METABOLIC PANEL Routine 10/07/2019 9:57 AM EST Routine general medical examination at a health care facility CBC Routine 10/07/2019 9:57 AM EST Routine general medical examination at a [facility] care facility LIPID PANEL Routine 10/07/2019 9:57 AM EST Routine general medical examination at a [facility] care facility documented in this encounter Results * (ABNORMAL) Urinalysis with sediment (10/07/2019 9:57 AM EST) WBC 0-4(A) NONE SEEN /hpf [facility] RBC 0-2(A) NONE SEEN /hpf [facility] URINE EPITHELIAL 21-49(A) NONE SEEN [facility] MUCUS Trace(A) NONE SEEN /hpf [facility] BACTERIA 2+(A) NONE SEEN [facility] COLOR Yellow Yellow [facility] CLARITY HAZY [facility] GLUCOSE Negative Negative [facility] BILI Negative Negative [facility] KETONES Negative Negative [facility] SPECIFIC GRAVITY 1.020 1.005 - 1.030 [facility] BLOOD Negative Negative [facility] PH 6.0 5.0 - 8.0 [facility] Protein-UA Negative Negative [facility] NITRITE Negative Negative [facility] Leukocyte esterase, ur Negative Negative [facility] Urine (Urine) 10/07/2019 9:5 7 AM EST 10/07/2019 9:59 AM EST us Karen Clark MD URINE ORDERABLES Final Resu lt [facility] [address] [place] [address] * CBC (10/07/2019 9:57 AM EST) WBC 5.86 3.40 - 11.20 K/uL [facility] RBC 4.27 3.80 - 4.80 M/uL [facility] HGB 12.8 12.0 - 15.0 g/dL [facility] HCT 38.2 36.0 - 46.0 % [facility] PLT 235 130 - 400 K/uL [facility] MCV 89.5 79.0 - 98.0 fL [facility] MCH 30.0 27.0 - 34.8 pg [facility] MCHC 33.5 31.5 - 36.0 g/dL [facility] RDW 12.7 10.8 - 14.6 % [facility] MPV 10.6 9.4 - 12.4 fl [facility] NRBC 0.00 0.00 /100 WBCs [facility] ABSOLUTE NRBC 0.00 0.00 K/uL [facility] Blood 10/07/2019 9:57 AM EST 10/07/2019 9:59 AM EST Karen Clark MD LAB BLOOD ORDERABLES Final Result Performing Organization Address City/State/[facility] Co de Phone Number [address] [address] * (ABNORMAL) Lipid panel (10/07/2019 9:57 AM EST) HDL 62 mg/dL [facility] Comment: Interpretation <40 mg/dL: Low HDL cholesterol (major risk factor for CHD) Greater than or equal to 60 mg/dL: High HDL cholesterol ( negative risk factor for CHD) HDL - cholesterol is affected by a number of factors, e.g. smoking, excerise, hormones, sex and age. CHOLESTEROL 144 0 - 240 mg/dL [facility] TRIGLYCERIDES 57 30 - 160 mg/dL [facility] LDL 71 50 - 129 mg/dL [facility] Comment: LDL levels in terms of risk for coronary heart disease: <100 mg/dL: Optimal 100-129 mg/dL: Near or above optimal 130-159 mg/dL: Borderline high 160-189 mg/dL: High >190 mg/dL: Very High CARDIAC RISK RATIO 2.3(L) 3.3 - 4.4 C [facility] Blood 10/07/2019 9:57 AM EST 10/07/2019 9:59 AM EST us Karen Clark MD LAB BLOOD ORDERABLES Final Result [address] [address] * Comprehensive metabolic panel (10/07/2019 9:57 AM EST) SODIUM 140 133 - 146 mmol/L [facility] POTASSIUM 4.8 3.3 - 5.1 mmol/L [facility] CHLORIDE 103 96 - 108 mmol/L [facility] CO2 25 21 - 35 mmol/L [facility] BUN 11 6 - 19 mg/dL [facility] CREATININE 0.80 0.5 - 1.5 mg/dL [facility] GLUCOSE 93 70 - 99 mg/dL [facility] ALBUMIN 4.2 3.9 - 4.8 g/dL [facility] TOTAL PROTEIN 7.1 6.5 - 8.0 g/dL [facility] CALCIUM 8.9 8.4 - 10.3 mg/dL [facility] ALKALINE PHOSPHATASE 63 39 - 117 U/L [facility] TOTAL BILIRUBIN 0.4 0.0 - 1.2 mg/dL [facility] AST 18 0 - 37 U/L [facility] ALT 14 0 - 40 U/L [facility] GLOBULIN 2.9 1 - 4.8 g/dL [facility] EGFR 91 >59 mL/min/1.7 3m2 [facility] Comment:If patient is black, multiply result by 1.159. Estimated glomerular filtration rate calculated using the CKD-EPI equation. ANION GAP 17 10 - 20 mmol/L [facility] Blood 10/07/2019 9:57 AM EST 10/07/2019 9:59 AM EST Karen Clark MD LAB BLOOD ORDERABLES Final Result [address] [address] documented in this encounter Visit Diagnoses Diagnosis Routine general medical examination at a health care facility- Primary documented in this encounter Additional Health Concerns Infection Onset Date Last Indicated Resolved Time CoV-Risk 05/05/2024 05/05/2024 05/16/2024 1:22 AM EDT documented as of this encounter Care Teams Suction Plate Carrier Cleaner Relationship Specialty Start Date End Date Karen Clark MD [address] [place] [address] [email or web address] PCP - General Internal Medicine 10/24/17 Gladis Rojas MD [address] [place] [address] 3 [place] [address] Historical LMR Provider 09/03/17 2 Karen Clark MD [address] [place] [address] [email or web address] Historical LMR Provider 09/03/17 Juwan Ledezma MD [address] [place] [address] [address] [place] [address] [email or web address] Historical LMR Provider 09/03/17 documented as of this encounter Additional Source Comments The information contained in this document represents components of the legal health record. It is not the complete legal health record.[facility]
== END 2025-08-25 10:31 | disposition home or self-care (01) ==
LOC: HO.HMCFM 09:48
PROVIDERS: PCP Internal Medicine; Visit Provider Internal Medicine
DX: Z00.00 Encounter for general adult medical examination without abnormal findings (principal); M25.50 Pain in unspecified joint; R41.3 Other amnesia; Z23 Encounter for immunization

== ENCOUNTER 2025-08-25 09:47 | Outpatient (REF) | payer OTHER, SELFPAY ==
[2025-08-25 14:21] LABS: MANUAL DIFF FLAG NO
[2025-08-25 14:45] LABS: Hematocrit 37.3 % (37.0-47.0); Hemoglobin 12.2 g/dl (12.0-16.0); Imm Gran Abs Auto 0.03 X10*3/uL (0.00-0.03); Imm Gran Pct Auto 0.5 % (0.0-0.4); Lymphocytes Absolute Auto 1.9 X10*3/uL (1.2-4.9); Mean Corpuscular HGB Conc 32.7 g/dl (31.0-35.0); Mean Corpuscular Hemoglobin 29.8 pg (27.0-33.0); Mean Corpuscular Volume 91.0 fL (80.0-98.0); NRBC Abs Auto 0.000 X10*3/uL (0.0-0.012); NRBC Pct Auto 0.0 /100WBC (0.0-0.2); Platelet Count 243 X10*3/uL (160-400); Red Blood Count 4.10 X10*6/uL (4.20-5.50); White Blood Count 6.3 X10*3/uL (4.8-10.8)
[2025-08-25 15:01] LABS: Alanine Aminotransferase 15 U/L (0-31); Albumin Level 4.2 g/dL (3.5-5.0); Alkaline Phosphatase 66 U/L (39-117); Anion Gap 10 (12-20); Aspartate Amino Transferase 21 U/L (5-31); Blood Urea Nitrogen 13 mg/dL (9-16); Calcium 8.8 mg/dL (8.4-10.2); Carbon Dioxide 28 mmol/L (22-29); Chloride 107 mmol/L (96-108); Cholesterol 170 mg/dL (<200); Estimated Glomerular Filt Rate > 60; HDL Cholesterol 59 mg/dL (>40); Potassium 3.9 mmol/L (3.3-5.1); Sodium 141 mmol/L (135-145); Total Protein 6.7 g/dL (6.5-8.0); Triglycerides 101 mg/dL (<150)
[2025-08-25 15:24] LABS: Erythrocyte Sedimentation Rate 11 MM/HR (0-20)
[2025-08-25 15:34] LABS: Folate 10.7 ng/mL (> or = 4.0); Vitamin B12 345 pg/mL (200-900)
[2025-08-26 06:18] LABS: Lyme Abs Screen <0.90 index
[2025-08-27 00:54] LABS: A. Phagocytphilium DNA,RT-PCR NOT DETECTED (NOT DETECTED); Babesia Microti DNA, RT-PCR NOT DETECTED (NOT DETECTED); Borrelia Miyamotoi,DNA RT-PCR NOT DETECTED (NOT DETECTED); E.Chaffeensis DNA RT-PCR NOT DETECTED (NOT DETECTED); Lyme(Borrelia ssp)DNA RT-PCR NOT DETECTED (NOT DETECTED)
[2025-08-31 16:39] LABS: Vitamin D 25-OH, D2 <4 ng/mL; Vitamin D 25-OH, D3 20 ng/mL; Vitamin D 25-OH, Total 20 ng/mL (30-100)
== END 2025-08-25 09:48 | disposition home or self-care (01) ==
LOC: HO.WFDLDS 09:47
PROVIDERS: PCP Internal Medicine; Visit Provider Internal Medicine
DX: Z00.00 Encounter for general adult medical examination without abnormal findings (principal); Z13.0 Encounter for screening for diseases of the blood and blood-forming organs and certain disorders involving the immune mechanism; Z23 Encounter for immunization; Z13.228 Encounter for screening for other metabolic disorders; Z13.220 Encounter for screening for lipoid disorders; M25.50 Pain in unspecified joint; R41.3 Other amnesia
CPT/HCPCS: 36415; 80053; 80061; 82306; 82607; 82746; 84443; 85025; 85652; 86617; 86618; 87468; 87469; 87478; 87484; 87798; 90471; 90656; 96127